=== PATIENT | female | born 1960 | race Two or more races ===

== ENCOUNTER 2019-10-05 12:27 | Emergency (ER) | payer SELFPAY ==
[~2019-10-05] VITALS: Ht 165.1 cm; Wt 64.4 kg
[~2019-10-05 12:27] MED LIST: ASPIRIN-LOW81 MG ORAL; CIPROFLOXACIN500 M2 ORAL; FAMOTIDINE20 MG ORAL; LEVEMIR FL100 UNIT/1 SUBQ; LISINOPRIL20 MG ORAL; LISINOPRIL5 MG ORAL; MECLIZINE HCL25 MG ORAL; METFORMIN HCL1000 M1 ORAL; NOVOLOG100 UNITS1 SUBQ; ZOFRAN4 MG ORAL
[2019-10-05 12:40] VITALS: BP 137/77
[2019-10-05] MEDS ORDERED: Tetracaine 0.5% Opth 4ml Soln RIGHT EYE ONE (13:00)
[2019-10-05] MEDS ORDERED: Fluorescein Strips BOTH EYES ONE (13:00)
--- NOTE | 2019-10-05 13:19 | Emergency Room Report ---
History of Present Illness General Chief Complaint: Eye Problems Source: Patient Present Illness HPI Disclaimer: Please note that this report is being documented using [employer] technology. This can lead to erroneous entry secondary to incorrect interpretation by the dictating instrument. HPI: 59-year-old female history of diabetes presents for monocular vision loss. She states that yesterday approximately 10 AM she noticed dark floaters in her eye as well as a mild headache. She laid down to take a nap and when she awoke she had complete loss of vision on the right eye. She denied eye pain, tearing, foreign body sensation, trauma to the head. She notes a generalized headache throughout the day and this morning. Denies nausea, vomiting, vertiginous symptoms. No prior history of ocular trauma. She takes metformin for diabetes. Denies pain in the neck, chest pain, palpitations, history of atrial fibrillation. PMH: Diabetes PSH: Denies Allergies: None reported Social Hx: None reported Allergies: Coded Allergies: No Known Allergies (Verified Allergy, Unknown, 11/10/08) COVID-19 Screening Contact w/high risk pt: No Recent Travel to affected area: No Experienced COVID-19 symptoms?: No COVID-19 Testing performed ADMINISTRATIVE SERVICES OFFICER: No Nursing Documentation-PMH Hx Cardiac Problems: Yes Hx Hypertension: Yes Hx Diabetes: Yes Review of Systems All Other Systems: negative except mentioned in HPI Physical Exam Vital Signs Date Time Temp Pulse Resp B/P (MAP) Pulse Ox O2 Delivery O2 Flow Rate FiO2 10/05/19 12:32 98.2 78 19 137/77 (97) 99 Room Air General: Awake and alert, no acute distress HEENT: NC/AT. Pupils are 5 cm and reactive bilaterally. There is no apparent vision in the right eye. No reaction to confrontation. Extraocular movements remain intact. No hypopyon, hyphema, no discharge, no scleral injection. Cannot visualize any vessels in the right eye. Vessels appear normal in the left. Visual acuity: OD 20/200, OS 20/40, OU 20/40 Ultrasound: Free-floating hyperdensities and a linear density consistent with a retinal detachment. Resp: Normal work of breathing Skin: Intact. No abrasions, laceration or rash over the exposed skin MSK: Normal tone and bulk. Moving all extremities. No obvious deformity. Neuro: Awake and alert. Mentating appropriately Medical Decision Making Diagnostic Impression: Primary Impression: Retinal detachment ER Course 59-year-old female presenting with sudden monocular vision loss for 1 day. Concern for retinal detachment, vitreous detachment, vitreous hemorrhage. Concern for retinal detachment, discussed with Dr. Elmore who will see the patient immediately in his office. The patient will be discharged from the ED and proceed directly for evaluation. Her daughter is here to drive her. Discussed the urgency of evaluation by retinal specialist. Patient understands and agrees with this plan. Last Vital Signs Date Time Temp Pulse Resp B/P (MAP) Pulse Ox O2 Delivery O2 Flow Rate FiO2 10/05/19 12:40 98.2 19 137/77 99 Room Air 10/05/19 12:32 78 Disposition: HOME, SELF-CARE Condition: Stable Referrals: NOT CHOSEN IPA/,REFERRING (PCP) Jay Crowe MD Oct 05, 2019 13:19
[2019-10-05 13:39] VITALS: BP 130/72
[2019-10-05 13:58] LABS: BASOPHILS % (AUTO) 1.1 % (0.0-2.0); EOSINOPHILS % (AUTO) 1.6 % (0.0-3.0); HEMATOCRIT 32.9 % (37.0-47.0); HEMOGLOBIN 10.1 G/DL (12.0-16.0); LYMPHOCYTES % (AUTO) 26.2 % (20.0-45.0); MEAN CORPUSCULAR VOLUME 65 FL (80-99); MONOCYTES % (AUTO) 5.1 % (1.0-10.0); NEUTROPHILS % (AUTO) 66.1 % (45.0-75.0); PLATELET COUNT 314 K/UL (150-450); RED BLOOD COUNT 5.03 M/UL (4.20-5.40); RED CELL DISTRIBUTION WIDTH 14.3 % (11.6-14.8); WHITE BLOOD COUNT 6.7 K/UL (4.8-10.8)
[2019-10-05 14:06] LABS: ANION GAP 12 mmol/L (5-15); BLOOD UREA NITROGEN 24 mg/dL (7-18); CALCIUM 8.7 MG/DL (8.5-10.1); CARBON DIOXIDE 23 MMOL/L (21-32); CHLORIDE 101 MMOL/L (98-107); CREATININE 0.8 MG/DL (0.55-1.30); POTASSIUM 3.6 MMOL/L (3.5-5.1); SODIUM 136 MMOL/L (136-145)
[2019-10-05 14:09] LABS: INR 0.9 (0.9-1.1)
[2019-10-05 14:10] LABS: ALANINE AMINOTRANSFERASE 19 U/L (12-78); ALBUMIN 3.4 G/DL (3.4-5.0); ALBUMIN/GLOBULIN RATIO 0.8 (1.0-2.7); ALKALINE PHOSPHATASE 118 U/L (46-116); ASPARTATE AMINO TRANSFERASE 14 U/L (15-37); BILIRUBIN,TOTAL 0.2 MG/DL (0.2-1.0)
== END 2019-10-05 13:39 | disposition home or self-care (01) ==
LOC: EMR 12:58
DX: H33.20 Serous retinal detachment, unspecified eye (principal); R51 Headache; E11.9 Type 2 diabetes mellitus without complications; I10 Essential (primary) hypertension; Z79.84 Long term (current) use of oral hypoglycemic drugs
CPT/HCPCS: 36415; 80053; 85025; 85610; 85651; 85730; 86140; 99283